=== PATIENT | female | born 1990 | race Two or more races ===

== ENCOUNTER 2020-07-12 12:01 | Emergency (ER) | payer OTHER ==
[~2020-07-12] VITALS: Ht 170.2 cm; Wt 83.9 kg
[2020-07-12] MEDS ORDERED: FIORINAL 50-321 EACH PO (15:01)
[2020-07-12] MEDS ORDERED: MECLIZINE HCL25 MG PO (15:01)
== END 2020-07-12 15:02 | disposition home or self-care (01) ==
LOC: ER 12:01
DX: G43.509 Persistent migraine aura without cerebral infarction, not intractable, without status migrainosus (principal); Z20.828 Contact with and (suspected) exposure to other viral communicable diseases